=== PATIENT | male | born 1975 | race American Indian/Alaskan Native ===

== ENCOUNTER 2021-03-08 18:10 | Emergency (ER) | payer SELFPAY ==
[2021-03-08] MEDS ORDERED: FLUORESCEIN 1 MG STRIP OP ONE (19:38)
[2021-03-08] MEDS ORDERED: TETRACAINE 0.5% OPHTH SOLN 4ML OU ONE (19:38)
--- NOTE | 2021-03-08 19:40 | Event Note ---
ED Screening Note Date of service: 03/08/21 Time: 19:38 ED Screening Note: 46-year-old male patient presents emergency department complaints of left eye pain and visual disturbance following an accidental injury. Patient states he struck his left eye with a piece of hot rubber while at work today. Patient was not wearing glasses or contact lenses at the time of the injury. General: Awake, appropriately interactive, no acute distress. Eyes: Periorbital swelling to the left eye with conjunctival injection. Pupils equal and round. Neck: Supple. Full range of motion intact. Cardiovascular: Normal peripheral perfusion. Pulmonary: No respiratory distress. Patient is speaking normally without use of accessory muscles. Skin: No apparent rashes or lesions. Neurological: No facial asymmetry. Speech is clear. Follows commands. Patient is alert and oriented. Musculoskeletal: Moves all four extremities spontaneously with normal range of motion. Psych: Cooperative. Appropriate mood and affect. Further diagnostic work-up deferred to additional ED providers following complete history and comprehensive ophthalmological assessment. I have greeted and performed a focused rapid initial assessment of this patient. A comprehensive ED assessment and evaluation of the patient, analysis of all test results, and completion of the medical decision-making process will be conducted by additional ED providers. This initial assessment/diagnostic orders/clinical plan/treatment(s) is/are subject to change based on patients health status, clinical progression and re-assessment. Further treatment and workup at subsequent clinical provider's discretion. Patient/guardian urged not to elope from the ED as their condition may be serious if not clinically assessed and managed.
[2021-03-09] MEDS ORDERED: oxyCODONE /ACETAMINOPHEN 5-325MG TAB PO ONE (01:40)
[2021-03-09] MEDS ORDERED: oxyCODONE /ACETAMINOPHEN 5-325MG TAB ONE (01:49)
[2021-03-09 08:18] VITALS: BP 163/88
--- NOTE | 2021-04-06 00:25 | Emergency Department Report ---
[facility] Chief Complaint: Eye Problems Stated Complaint: LEFT EYE INJURY Time Seen by Provider: 03/08/21 21:35 Duration: 2 Days Side: Left Severity: mild Symptoms: Yes Eye Redness, Yes Eye Pain, No Mucous Drainage, No Purulent Drainage, No Blurred Vision, No Preceding URI, No H/O Allergic Rhinitis, No Contact Lens Use, No Trauma, No Fever, No Headache ED Review of Systems ROS: Stated complaint: LEFT EYE INJURY Other details as noted in HPI Comment: All other systems reviewed and negative ED Past Medical Hx - Past Medical History Previous Medical History?: No - Surgical History Past Surgical History?: No - Medications Home Medications: Home Medications Medication Instructions Recorded Confirmed Last Taken Type Ketorolac Tromethamin 0.4%(Nf) 1 drop OP QID #1 bottle 03/08/21 Unknown Rx [Acular Ls 0.4% Ophth Olimpia] Naphazoline HCl/Pheniramine 1 drop OU BID #1 bottle 03/08/21 Unknown Rx [Naphcon-A Eye Drops] Tobramycin [Tobrex] 1 drop OP Q4H #1 bottle 03/08/21 Unknown Rx [facility] Exam - Exam General: Vital signs noted. No distress. Alert and acting appropriately. Eye Exam: Left Injection (corneal abrasion), Left Fluorescein Uptake, Neither Chemosis, Neither Abnormal Pupil, Neither EOMI, Neither Eye Foreign Body, Neither Lid Foreign Body, Neither Mucous Discharge, Neither Purulent Discharge, Neither Fluorescein Uptake (slit lamp), Neither Cell/Flare (slit lamp), Neither Corneal Edema, Neither Photophobia HEENT: Yes Nasal Congestion, No Pharyngeal Erythema Remainder of HEENT: Normal Lungs: Yes Clear Lung Sounds, Yes Good Air Exchange, No Wheezes, No Stridor, No Cough, No Nasal Flaring ED Course Vital Signs 03/08/21 03/09/21 19:35 01:55 Temperature 97.8 F Pulse Rate 74 72 Respiratory 16 17 Rate Blood Pressure 177/94 Blood Pressure 163/88 [Left] O2 Sat by Pulse 97 99 Oximetry Critical care attestation.: If time is entered above; I have spent that time in minutes in the direct care of this critically ill patient, excluding procedure time. ED Disposition Clinical Impression: Corneal abrasion Disposition: 01 HOME / SELF CARE / HOMELESS Is pt being admited?: No Does the pt Need Aspirin: No Condition: Stable Prescriptions: Ketorolac Tromethamin 0.4%(Nf) [Acular Ls 0.4% Ophth Olimpia] 1 drop OP QID #1 bottle Naphazoline HCl/Pheniramine [Naphcon-A Eye Drops] 1 drop OU BID #1 bottle Tobramycin [Tobrex] 1 drop OP Q4H #1 bottle Referrals: PRIMARY CARE, [Primary Care Provider] - 3-5 Days
== END 2021-03-09 01:55 | disposition home or self-care (01) ==
LOC: ED 18:10
DX: H57.12 Ocular pain, left eye (principal); Z53.21 Procedure and treatment not carried out due to patient leaving prior to being seen by health care provider